=== PATIENT | male | born 2000 | race Caucasian/White ===

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

== ENCOUNTER 2024-04-01 20:12 | Emergency (ER) | payer OTHER ==
[~2024-04-01] VITALS: Ht 172.7 cm; Wt 61.7 kg
[2024-04-01] MEDS ORDERED: Ondansetron Hydrochloride 4 MG TAB SL ONE (21:00)
[2024-04-01] MEDS ORDERED: Ondansetron4 MG PO (22:37)
[2024-04-01] MEDS ORDERED: AMOX-CLAV 875-1 EACH PO (22:37)
== END 2024-04-01 22:48 | disposition home or self-care (01) ==
LOC: ED 20:12
DX: H66.90 Otitis media, unspecified, unspecified ear (principal); Z20.822 Contact with and (suspected) exposure to COVID-19